=== PATIENT | male | born 1995 | race Caucasian/White ===

== ENCOUNTER 2016-10-16 11:56 | Emergency (ER) | payer MEDICAID ==
[~2016-10-16 11:56] MED LIST: CIPR500T89 PO; PRIL20CA9 PO
--- NOTE | 2016-10-16 14:10 | EDDOCDS ---
Nurse's Notes [facility] Name: Barber Kelley Age: 21 yrs Sex: Male : 1995 Arrival Date: 10/16/2016 Time: 11:56 Bed TR8 Private MD: NO PRIMARY PHYSICIAN, . Diagnosis: Fever, unspecified Presentation: 10/16 12:01 Presenting complaint: Patient states: Sick for last 3 days--vomiting, ache all over, mcp fever, coughing. Adult Sepsis Screening: The patient does not have new or worsening altered mentation. Patient's respiratory rate is less than 22. Systolic blood pressure is greater than 100. Patient has a qSOFA score of 0- Negative Sepsis Screen. Suicide/Homicide risk assessment- the patient denies having any suicidal and/or homicidal ideations and does not present with any other emotional, behavioral or mental health complaints. Status: Patient is not a visitor services information assistant or dependent. Transition of care: patient was not received from another setting of care. 12:01 Acuity: MARLENA Level 3 [facility] 12:01 Method Of Arrival: Walkin/Carried/Asstd [facility] Triage Assessment: 12:03 General: Appears ill, Behavior is cooperative. Pain: Location: all over Pain currently mcp is 8 out of 10 on a pain scale. HIV screening NA for this visit Offered previously. Neurological: No deficits noted. Respiratory: Airway is patent Respiratory effort is even, unlabored, Reports cough that is persistent. Derm: Skin is dry, Skin is pale, Skin temperature is warm. Historical: - Allergies: no known allergies; - Home Meds: 1. none - PMHx: none; - PSHx: Appendectomy; wisdom teeth; - Social history: Smoking status: Patient uses tobacco products, light tobacco smoker. No barriers to communication noted, The patient speaks fluent Kyrgyz. - : The pt / caregiver states he / she is not on anticoagulants. Home medication list is obtained from the patient. - Exposure Risk Screening:: None identified. Vital Signs: 11:58 BP 138 / 77; Pulse 112; Resp 18 S; Temp 101.4(O); Pulse Ox 100% on R/A; Weight 57.61 kg dd6 (R); Height 5 ft. 11 in. (180.34 cm) (R); 11:58 Body Mass Index 17.71 (57.61 kg, 180.34 cm) dd6 Vitals: 11:58 Log In Time: October 16, 2016 at 11:56. dd6 ED Course: 11:57 Patient visited by Dillan Ulrich PCA. dd6 11:57 NO PRIMARY PHYSICIAN, . is Private Physician. dd6 11:57 Patient moved to Waiting dd6 11:58 Patient moved to Pre RCE dd6 12:02 Triage Initiated [facility] 12:03 Patient visited by Megha Balderrama RN. [facility] 12:51 Patient moved to Triage 3 ar3 13:13 Senthil Conner PA-C is PHCP. jk8 13:13 Phu Arriola MD is Attending Physician. jk8 13:13 Patient visited by Senthil Conner PA-C. jk8 13:32 Patient moved to TR8 dls Order Results: There are currently no results for this order. Outcome: 14:03 Patient left against medical advice. jk8 14:08 Discharge Assessment: Patient awake, alert and oriented x 3. No cognitive and/or dls functional deficits noted. Patient verbalized understanding of disposition instructions. patient administered narcotics - no. The following High Risk Discharge criteria are identified: The patient is leaving AMA: AMA form signed. Condition: stable. No special radiology studies were completed. Property sent home with patient. 14:09 Patient left the ED. dls Signatures: Megha Balderrama RN RN mcp Scott, Debra, RN RN dls Desormeau, Daniell, MARTHA CRM ADMINISTRATOR dd6 Mary Kay Yang, CRM ADMINISTRATOR CRM ADMINISTRATOR ar3 Senthil Conner PA-C PA-C jk8 MTDD
--- NOTE | 2016-10-16 14:10 | EDDOCDS ---
Physician Documentation [facility] Name: Barber Kelley Age: 21 yrs Sex: Male : 1995 Arrival Date: 10/16/2016 Time: 11:56 Bed TR8 Private MD: NO PRIMARY PHYSICIAN, . Disposition: 10/16/16 14:03 Patient has left against medical advice. Impression: Fever, unspecified. - Patients states they are going to Home/Self Care. - Condition is Unknown. Medication Reconciliation, Local Pharmacy Hours form. Follow up: Emergency Department; When: As soon as possible; Reason: Worsening of conditions. - Problem is new. - Symptoms are unchanged. Historical: - Allergies: no known allergies; - Home Meds: 1. none - PMHx: none; - PSHx: Appendectomy; wisdom teeth; - Social history: Smoking status: Patient uses tobacco products, light tobacco smoker. No barriers to communication noted, The patient speaks fluent Irish. - : The pt / caregiver states he / she is not on anticoagulants. Home medication list is obtained from the patient. - Exposure Risk Screening:: None identified. Vital Signs: 10/16 11:58 BP 138 / 77; Pulse 112; Resp 18 S; Temp 101.4(O); Pulse Ox 100% on R/A; Weight 57.61 kg dd6 / 127.01 lbs (R); Height 5 ft. 11 in. (180.34 cm) (R); 11:58 Body Mass Index 17.71 (57.61 kg, 180.34 cm) dd6 MDM: 13:34 Financial registration complete. mm15 Signatures: Megha Balderrama RN RN mcp Scott, Debra, RN RN dls McGrath, Marlynn mm15 Senthil Conner PA-C PA-C jk8 HILARIO
--- NOTE | 2016-10-18 15:10 | EDDOCDS ---
Physician Documentation [facility] Name: Barber Kelley Age: 21 yrs Sex: Male : 1995 Arrival Date: 10/16/2016 Time: 11:56 Bed TR8 Private MD: NO PRIMARY PHYSICIAN, . Disposition: 10/16/16 14:03 Patient has left against medical advice. Impression: Fever, unspecified. - Patients states they are going to Home/Self Care. - Condition is Unknown. Medication Reconciliation, Local Pharmacy Hours form. Follow up: Emergency Department; When: As soon as possible; Reason: Worsening of conditions. - Problem is new. - Symptoms are unchanged. Historical: - Allergies: no known allergies; - Home Meds: 1. none - PMHx: none; - PSHx: Appendectomy; wisdom teeth; - Social history: Smoking status: Patient uses tobacco products, light tobacco smoker. No barriers to communication noted, The patient speaks fluent Latvian. - : The pt / caregiver states he / she is not on anticoagulants. Home medication list is obtained from the patient. - Exposure Risk Screening:: None identified. Vital Signs: 10/16 11:58 BP 138 / 77; Pulse 112; Resp 18 S; Temp 101.4(O); Pulse Ox 100% on R/A; Weight 57.61 kg dd6 / 127.01 lbs (R); Height 5 ft. 11 in. (180.34 cm) (R); 11:58 Body Mass Index 17.71 (57.61 kg, 180.34 cm) dd6 MDM: 13:34 Financial registration complete. mm15 14:19 [facility] Payment Agreement was scanned into [employer] and attached to record. mm15 22:33 T-Sheet-- Draft Copy was scanned into [employer] and attached to record. klr 10/17 12:43 Refusal of Services was scanned into [employer] and attached to record. gb Signatures: Megha Balderrama RN RN mcp Scott, Debra, RN RN dls Barnhardt, Gloria, Foreign [place] mm15 Senthil Conner, HUNTERC Yari Retana The chart was reviewed and I authenticate all verbal orders and agree with the evaluation and treatment provided.Attachments: 10/16 14:19 [facility] Payment Agreement mm15 22:33 T-Sheet-- Draft Copy klr Chart Complete MTDD
--- NOTE | 2016-10-18 15:10 | EDDOCDS ---
Nurse's Notes [facility] Name: Barber Kelley Age: 21 yrs Sex: Male : 1995 Arrival Date: 10/16/2016 Time: 11:56 Bed TR8 Private MD: NO PRIMARY PHYSICIAN, . Diagnosis: Fever, unspecified Presentation: 10/16 12:01 Presenting complaint: Patient states: Sick for last 3 days--vomiting, ache all over, mcp fever, coughing. Adult Sepsis Screening: The patient does not have new or worsening altered mentation. Patient's respiratory rate is less than 22. Systolic blood pressure is greater than 100. Patient has a qSOFA score of 0- Negative Sepsis Screen. Suicide/Homicide risk assessment- the patient denies having any suicidal and/or homicidal ideations and does not present with any other emotional, behavioral or mental health complaints. Status: Patient is not a associate director career services or dependent. Transition of care: patient was not received from another setting of care. 12:01 Acuity: MARLENA Level 3 [facility] 12:01 Method Of Arrival: Walkin/Carried/Asstd [facility] Triage Assessment: 12:03 General: Appears ill, Behavior is cooperative. Pain: Location: all over Pain currently mcp is 8 out of 10 on a pain scale. HIV screening NA for this visit Offered previously. Neurological: No deficits noted. Respiratory: Airway is patent Respiratory effort is even, unlabored, Reports cough that is persistent. Derm: Skin is dry, Skin is pale, Skin temperature is warm. Historical: - Allergies: no known allergies; - Home Meds: 1. none - PMHx: none; - PSHx: Appendectomy; wisdom teeth; - Social history: Smoking status: Patient uses tobacco products, light tobacco smoker. No barriers to communication noted, The patient speaks fluent Belarusian. - : The pt / caregiver states he / she is not on anticoagulants. Home medication list is obtained from the patient. - Exposure Risk Screening:: None identified. Vital Signs: 11:58 BP 138 / 77; Pulse 112; Resp 18 S; Temp 101.4(O); Pulse Ox 100% on R/A; Weight 57.61 kg dd6 (R); Height 5 ft. 11 in. (180.34 cm) (R); 11:58 Body Mass Index 17.71 (57.61 kg, 180.34 cm) dd6 Vitals: 11:58 Log In Time: October 16, 2016 at 11:56. dd6 ED Course: 11:57 Patient visited by Dillan Ulrich PCA. dd6 11:57 NO PRIMARY PHYSICIAN, . is Private Physician. dd6 11:57 Patient moved to Waiting dd6 11:58 Patient moved to Pre RCE dd6 12:02 Triage Initiated [facility] 12:03 Patient visited by Megha Balderrama RN. [facility] 12:51 Patient moved to Triage 3 ar3 13:13 Senthil Conner PA-C is PHCP. jk8 13:13 Phu Arriola MD is Attending Physician. jk8 13:13 Patient visited by Senthil Conner PA-C. jk8 13:32 Patient moved to TR8 dls 14:19 [facility] Payment Agreement was scanned into [employer] and attached to record. mm15 22:33 T-Sheet-- Draft Copy was scanned into [employer] and attached to record. klr 10/17 12:43 Refusal of Services was scanned into [employer] and attached to record. gb Attachments: 10/17 12:43 Refusal of Services gb Order Results: There are currently no results for this order. Outcome: 10/16 14:03 Patient left against medical advice. jk8 14:08 Discharge Assessment: Patient awake, alert and oriented x 3. No cognitive and/or dls functional deficits noted. Patient verbalized understanding of disposition instructions. patient administered narcotics - no. The following High Risk Discharge criteria are identified: The patient is leaving AMA: AMA form signed. Condition: stable. No special radiology studies were completed. Property sent home with patient. 14:09 Patient left the ED. dls Signatures: Megha Balderrama RN RN mcp Scott, Debra, RN RN dls Chaya Taylor, Reg Reg gb Dillan Ulrich, DEPUTY GRAND JURY DEPUTY GRAND JURY dd6 Mary Kay Yang DEPUTY GRAND JURY DEPUTY GRAND JURY ar3 Foreign Iglesias mm15 Senthil Conner PA-C PA-C jk8 Yari Camachor Chart Complete MTDD
--- NOTE | 2016-10-18 15:10 | EDDOCDS ---
Physician Documentation [facility] Name: Barber Kelley Age: 21 yrs Sex: Male : 1995 Arrival Date: 10/16/2016 Time: 11:56 Bed TR8 Private MD: NO PRIMARY PHYSICIAN, . Disposition: 10/16/16 14:03 Patient has left against medical advice. Impression: Fever, unspecified. - Patients states they are going to Home/Self Care. - Condition is Unknown. Medication Reconciliation, Local Pharmacy Hours form. Follow up: Emergency Department; When: As soon as possible; Reason: Worsening of conditions. - Problem is new. - Symptoms are unchanged. Historical: - Allergies: no known allergies; - Home Meds: 1. none - PMHx: none; - PSHx: Appendectomy; wisdom teeth; - Social history: Smoking status: Patient uses tobacco products, light tobacco smoker. No barriers to communication noted, The patient speaks fluent Greek. - : The pt / caregiver states he / she is not on anticoagulants. Home medication list is obtained from the patient. - Exposure Risk Screening:: None identified. Vital Signs: 10/16 11:58 BP 138 / 77; Pulse 112; Resp 18 S; Temp 101.4(O); Pulse Ox 100% on R/A; Weight 57.61 kg dd6 / 127.01 lbs (R); Height 5 ft. 11 in. (180.34 cm) (R); 11:58 Body Mass Index 17.71 (57.61 kg, 180.34 cm) dd6 MDM: 13:34 Financial registration complete. mm15 14:19 [facility] Payment Agreement was scanned into [employer] and attached to record. mm15 22:33 T-Sheet-- Draft Copy was scanned into [employer] and attached to record. klr 10/17 12:43 Refusal of Services was scanned into [employer] and attached to record. gb Signatures: Megha Balderrama RN RN mcp Scott, Debra, RN RN dls Barnhardt, Gloria, Foreign Valdez mm15 Senthil Conner, HUNTERC Yari Retana The chart was reviewed and I authenticate all verbal orders and agree with the evaluation and treatment provided.Attachments: 10/16 14:19 [facility] Payment Agreement mm15 22:33 T-Sheet-- Draft Copy klr Chart Complete MTDD
== END 2016-10-16 13:30 | disposition left against medical advice (07) ==
LOC: M ED 11:56
DX: R50.9 Fever, unspecified (principal); F17.210 Nicotine dependence, cigarettes, uncomplicated

== ENCOUNTER → 2017-09-07 | Outpatient (CLI) | payer OTHER, SELFPAY ==
[~2017-09-07] MED LIST changes: +CIPR-249 PO; -CIPR500T89 PO
== END ==
LOC: M WUC 16:04
PROVIDERS: ATTEND Family Medicine
DX: Z72.51 High risk heterosexual behavior (principal)

== ENCOUNTER → 2018-10-24 | Outpatient (CLI) | payer OTHER ==
[~2018-10-24] MED LIST changes: +AUGM875T28 PO
--- NOTE | 2018-10-25 17:21 | HOLTMON ---
[facility] Test Date: 2018-10-24 Pat Name: SELIN SKELTON Department: Room: - Gender: Machining Supervisor: AD FINNEY : 1995 Requested By: FRANCISCO JAVIER Rae [facility] Order Number: [id number] Reading MD: Sunday Karimi Interpretive Statements PATIENT USES DIP One diary entry of dizziness. Rhythm was sinus at the time. Heart rate variability was normal. There was no significant ecttopy. No significant ST events or pauses. No atrial fibrillation was seen (strip labeled as such is not atrial fibrillation). Unremarkable Holter monitor. Electronically Signed On 10-25-2018 17:20:38 EST by Sunday Karimi
== END ==
LOC: M EKG 08:32
PROVIDERS: ATTEND Family Medicine
DX: R00.2 Palpitations (principal)

== ENCOUNTER 2018-11-19 13:33 | Emergency (ER) | payer OTHER ==
[~2018-11-19] VITALS: Ht 185.4 cm; Wt 66.4 kg
[~2018-11-19 13:33] MED LIST changes: -AUGM875T28 PO
[2018-11-19] MEDS ORDERED: AUGM875T28 PO (15:53)
[2018-11-19] MEDS ORDERED: ADACEL/BOOSTRIX VACCINE (DIPHTH/PERTUSS/ACELL/TETANUS)0.5ML SYR (90715) IM ONE (16:00)
[2018-11-19 16:02] VITALS: BP 126/80
== END 2018-11-19 16:03 | disposition home or self-care (01) ==
LOC: M ED 13:33
DX: S01.511A Laceration without foreign body of lip, initial encounter (principal); W22.8XXA Striking against or struck by other objects, initial encounter; Y92.89 Other specified places as the place of occurrence of the external cause; Y99.0 Civilian activity done for income or pay; F17.220 Nicotine dependence, chewing tobacco, uncomplicated

== ENCOUNTER 2019-06-17 13:19 | Emergency (ER) | payer OTHER ==
[~2019-06-17] VITALS: Ht 185.4 cm; Wt 63.2 kg
[~2019-06-17 13:19] MED LIST changes: +AUGM875T28 PO
[2019-06-17 14:20] LABS: BASO % 0.4 % (0.0-1.0); EOS % 0.1 % (0.0-3.0); HEMATOCRIT 40.7 % (42.0-52.0); LYMPH # 1.8 10^3/uL (1.5-5.0); LYMPH % 24.5 % (24.0-44.0); MEAN CORPUSCULAR HEMOGLOBIN 31.3 pg (27.0-33.0); MEAN CORPUSCULAR HGB CONC 34.4 g/dl (32.0-36.5); MEAN CORPUSCULAR VOLUME 91.1 fl (80.0-96.0); MONO # 0.6 10^3/uL (0.0-0.8); MONO % 8.3 % (0.0-5.0); NEUTROPHILS % 66.6 % (36.0-66.0); PLATELET COUNT, AUTOMATED 238 10^3/uL (150-450); RED BLOOD COUNT 4.47 10^6/uL (4.30-6.10); WHITE BLOOD COUNT 7.5 10^3/uL (4.0-10.0)
--- NOTE | 2019-06-17 14:34 | REP ---
CHEST TWO VIEWS: There is no evidence of acute infiltrate. No pleural effusion is seen. The heart is normal in size. The mediastinal silhouette is unremarkable. The visualized osseous structures are intact. IMPRESSION: No acute pulmonary disease. Electronically Signed by Jamie Davila MD 06/17/2019 04:23 P
[2019-06-17 14:51] LABS: ALBUMIN 4.4 GM/DL (3.2-5.2); ALT/SGPT 19 U/L (12-78); BILIRUBIN,DIRECT 0.2 MG/DL (0.0-0.2); BILIRUBIN,TOTAL 0.4 MG/DL (0.2-1.0); BLOOD UREA NITROGEN 7 MG/DL (7-18); C REACTIVE PROTEIN QUANTITATIV < 0.30 MG/DL (0.00-0.30); CALCIUM LEVEL 9.2 MG/DL (8.5-10.1); CARBON DIOXIDE LEVEL 30 MEQ/L (21-32); CHLORIDE LEVEL 105 MEQ/L (98-107); CK-MB VALUE MASS 1.5 NG/ML (<3.6); CPK CREATINE PHOSPHOKINASE 236 U/L (39-308); CREATININE FOR GFR 1.12 MG/DL (0.70-1.30); FREE T4 0.88 NG/DL (0.76-1.46); GLOMERULAR FILTRATION RATE > 60.0 (>60); GLUCOSE, FASTING 84 MG/DL (70-100); LIPASE 74 U/L (73-393); MB/CK RELATIVE INDEX 0.64 (< OR =4); POTASSIUM SERUM 3.9 MEQ/L (3.5-5.1); SODIUM LEVEL 140 MEQ/L (136-145); TOTAL PROTEIN 7.1 GM/DL (6.4-8.2); TROPONIN I < 0.02 NG/ML (< 0.10)
[2019-06-17 15:32] VITALS: BP 133/79
[2019-06-17 15:37] LABS: ERYTHROCYTE SEDIMENTATION RATE 2 mm/hr (0-15)
--- NOTE | 2019-06-18 04:58 | ECGEPIP ---
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
== END 2019-06-17 15:41 | disposition home or self-care (01) ==
LOC: M ED 13:19
DX: R07.89 Other chest pain (principal); F17.220 Nicotine dependence, chewing tobacco, uncomplicated

== ENCOUNTER → 2021-12-29 | Outpatient (CLI) | payer OTHER ==
[2021-12-29 16:09] LABS: BASO % 0.5 % (0.0-1.0); EOS % 0.5 % (0.0-3.0); HEMATOCRIT 43.6 % (42.0-52.0); HEMOGLOBIN 14.8 g/dl (13.5-17.5); LYMPH # 2.9 10^3/uL (1.5-5.0); LYMPH % 37.8 % (24.0-44.0); MEAN CORPUSCULAR HGB CONC 33.9 g/dl (32.0-36.5); MEAN CORPUSCULAR VOLUME 91.2 fl (80.0-96.0); MONO # 0.7 10^3/uL (0.0-0.8); MONO % 9.6 % (2.0-8.0); NEUTROPHILS # 3.9 10^3/uL (1.5-8.5); NEUTROPHILS % 51.3 % (36.0-66.0); PLATELET COUNT, AUTOMATED 273 10^3/uL (150-450); RED BLOOD COUNT 4.78 10^6/uL (4.30-6.10); WHITE BLOOD COUNT 7.6 10^3/uL (4.0-10.0)
[2021-12-29 16:39] LABS: ERYTHROCYTE SEDIMENTATION RATE 1 mm/hr (0-15)
[2021-12-29 16:46] LABS: ALBUMIN 4.7 GM/DL (3.2-5.2); ALT/SGPT 18 U/L (12-78); AMYLASE 44 U/L (25-115); BILIRUBIN,TOTAL 0.5 MG/DL (0.2-1.0); BLOOD UREA NITROGEN 10 MG/DL (7-18); CARBON DIOXIDE LEVEL 32 MEQ/L (21-32); CHLORIDE LEVEL 104 MEQ/L (98-107); CREATININE FOR GFR 1.04 MG/DL (0.70-1.30); GLOMERULAR FILTRATION RATE > 60.0 (>60); GLUCOSE, FASTING 100 MG/DL (70-100); LIPASE 66 U/L (73-393); POTASSIUM SERUM 4.5 MEQ/L (3.5-5.1); RHEUMATOID FACTOR QUANT < 10.0 IU/ML (<15.0); SODIUM LEVEL 139 MEQ/L (136-145); TOTAL PROTEIN 7.5 GM/DL (6.4-8.2); URIC ACID 4.8 MG/DL (3.5-7.2)
== END ==
LOC: M WUC 11:35
PROVIDERS: ATTEND Family Medicine
DX: M25.50 Pain in unspecified joint (principal); R10.84 Generalized abdominal pain; R53.83 Other fatigue

== ENCOUNTER → 2022-02-02 | Outpatient (CLI) | payer OTHER ==
[2022-02-02 11:17] LABS: BASO % 0.4 % (0.0-1.0); EOS # 0.1 10^3/uL (0.0-0.5); EOS % 1.3 % (0.0-3.0); HEMATOCRIT 44.5 % (42.0-52.0); LYMPH # 2.6 10^3/uL (1.5-5.0); LYMPH % 36.4 % (24.0-44.0); MEAN CORPUSCULAR HEMOGLOBIN 30.9 pg (27.0-33.0); MEAN CORPUSCULAR HGB CONC 33.7 g/dl (32.0-36.5); MEAN CORPUSCULAR VOLUME 91.8 fl (80.0-96.0); MONO # 0.6 10^3/uL (0.0-0.8); NEUTROPHILS # 3.8 10^3/uL (1.5-8.5); NEUTROPHILS % 52.8 % (36.0-66.0); PLATELET COUNT, AUTOMATED 269 10^3/uL (150-450); RED BLOOD COUNT 4.85 10^6/uL (4.30-6.10); WHITE BLOOD COUNT 7.2 10^3/uL (4.0-10.0)
[2022-02-02 11:31] LABS: BLOOD UREA NITROGEN 13 MG/DL (7-18); CALCIUM LEVEL 9.4 MG/DL (8.5-10.1); CARBON DIOXIDE LEVEL 29 MEQ/L (21-32); CHLORIDE LEVEL 105 MEQ/L (98-107); CREATININE FOR GFR 0.84 MG/DL (0.70-1.30); GLOMERULAR FILTRATION RATE > 60.0 (>60); GLUCOSE, FASTING 85 MG/DL (70-100); IRON (FE) 77 UG/DL (65-175); PERCENT SATURATION 24.6 % (19.7-50.0); POTASSIUM SERUM 4.7 MEQ/L (3.5-5.1); SODIUM LEVEL 141 MEQ/L (136-145); TOTAL IRON BINDING CAPACITY 313 UG/DL (250-450)
== END ==
LOC: M WUC 08:26
PROVIDERS: ATTEND Internal Medicine Gastroenterology
DX: R10.13 Epigastric pain (principal)

== ENCOUNTER → 2022-02-17 | Outpatient (CLI) | payer OTHER ==
[~2022-02-17] MED LIST changes: +OMEP40CA5 PO
== END ==
LOC: M LABSMTC 11:32
PROVIDERS: ATTEND Anesthesiology
DX: Z01.812 Encounter for preprocedural laboratory examination (principal); Z20.822 Contact with and (suspected) exposure to COVID-19

== ENCOUNTER 2022-02-22 11:52 | Day surgery (SDC) | payer OTHER ==
[~2022-02-22] VITALS: Ht 182.9 cm; Wt 61.2 kg
[~2022-02-22 11:52] MED LIST changes: +NS 1,000 ML IV ONE
[2022-02-22] MEDS ORDERED: fentaNYL 100 MCG/2 ML INJECTION As Ordered ONE (14:23)
[2022-02-22] MEDS ORDERED: LIDOCAINE 2% 100MG/5ML SDV (FOR ANES.) As Ordered ONE (15:04)
[2022-02-22] MEDS ORDERED: propofoL 200 MG/20 ML VIAL As Ordered ONE (15:04)
[2022-02-22 15:22] VITALS: BP 116/76
== END 2022-02-22 15:23 | disposition home or self-care (01) ==
LOC: M OPP 11:52
PROVIDERS: ATTEND Internal Medicine Gastroenterology
DX: R19.4 Change in bowel habit (principal); K64.8 Other hemorrhoids; K29.70 Gastritis, unspecified, without bleeding; K92.0 Hematemesis; Z79.899 Other long term (current) drug therapy; F17.210 Nicotine dependence, cigarettes, uncomplicated
CPT/HCPCS: 43239; 45380; 88305; J3010

== ENCOUNTER → 2022-04-01 | Outpatient (CLI) | payer OTHER ==
[~2022-04-01] MED LIST changes: -NS 1,000 ML IV ONE
== END ==
LOC: M WHC 07:44
PROVIDERS: ATTEND Internal Medicine Gastroenterology
DX: R10.13 Epigastric pain (principal)

== ENCOUNTER 2024-12-31 19:47 | Emergency (ER) | payer OTHER ==
[~2024-12-31] VITALS: Ht 185.4 cm; Wt 68.0 kg
[2024-12-31] MEDS: KETOROLAC 30 MG/ML 1ML VIAL IM ONE (22:47)
[2024-12-31] MEDS: methocarbamoL 750 MG TAB PO ONE (22:47)
[2024-12-31] MEDS ORDERED: KETO10TAB PO (23:55)
[2024-12-31] MEDS ORDERED: METH-1165 PO (23:55)
[2025-01-01 00:06] VITALS: BP 114/79; TEMP 97.1; O2SAT 98
== END 2025-01-01 00:22 | disposition home or self-care (01) ==
LOC: M ED 19:47
DX: S39.012A Strain of muscle, fascia and tendon of lower back, initial encounter (principal); M62.830 Muscle spasm of back; X58.XXXA Exposure to other specified factors, initial encounter; Z79.899 Other long term (current) drug therapy; Y92.9 Unspecified place or not applicable; Y93.9 Activity, unspecified; Y99.9 Unspecified external cause status
CPT/HCPCS: 96372; 99283; J1885